=== PATIENT | female | born 1960 | race Caucasian/White ===

== ENCOUNTER 2024-08-17 12:31 | Emergency (ER) | payer MEDICARE, OTHER, SELFPAY ==
[2024-08-17 12:33] VITALS: BP 165/108
[2024-08-17 13:30] VITALS: BP 172/97
[2024-08-17] MEDS: TRANEXAMIC ACID 1000 MG INH (14:58)
--- NOTE | 2024-08-17 15:48 | ED.GENMED ---
History of Present Illness
General
Chief Complaint: Nose Bleed
Time Seen by Provider: 08/17/24 13:56
History of Present Illness
History of Present Illness:
64-year-old female presents to the emergency department for evaluation of persistent nosebleed. Had a small degree of nosebleeding yesterday however worsened again today. No reported trauma. Not on anticoagulants, does have a deviated septum
Review of Systems
Review of Systems
Allergies reviewed?: Yes
All Other Systems: ROS reviewed and negative except as documented in HPI and ROS
Phy Exam
Physical Exam
Physical Exam:
GEN: Well appearing, NAD, WDWN
HEENT: Oral mucosa moist, no scleral icterus. Copious epistaxis bilaterally, no evidence of active oropharyngeal hemorrhaging
Cardiac: Regular rate
Lung: No respiratory distress, no tachypnea
MSK: No gross deformity or injuries
Skin: Good color, no pallor or jaundice, no rashes
Neuro: AO x3, moves all extremities freely
Psych: Calm, cooperative
Course
Orders/Labs/Results
Orders:
Orders
08/17/24 14:19
Tranexamic Acid 1,000 mg INH NOW STA
Vital Signs
Initial and Last Documented VS:
Initial Vital Signs
Pulse Resp BP Pulse Ox
85 18 165/108 100
08/17/24 12:33 08/17/24 12:33 08/17/24 12:33 08/17/24 12:33
Last Documented Vital Signs
Pulse Resp BP Pulse Ox
85 18 172/97 100
08/17/24 12:33 08/17/24 12:33 08/17/24 13:30 08/17/24 12:33
Procedures
Nosebleed
Drug treatment: Epinephrine and Tranexamic Acid
Treatment: Merocel packing
Post treatment bleeding: none- good control
MDM/Problems Addressed
MDM/Problems Addressed:
Patient was initially packed bilaterally however left pack was removed and hemostasis remained. Hesitant to remove the right sided packing and potentially traumatize the nare further. Patient will be able to follow-up with ENT within the next 24
to 48 hours
*Critical Care Note
Total Time (30-74mins, 75-104mins- exclusive of procedures): Not Applicable
ED Attending Note
-
Portions of this chart may have been created with voice recognition software.� Occasional wrong word or��sound alike� substitutions may have occurred due to the inherent limitations of voice recognition software.
Discharge Plan
Departure
Patient Disposition: Home (Routine Discharge)
Date of Disposition: 08/17/24
Time of Disposition: 15:49
Patient with high blood pressure during this ER visit?: No
Discharge Problem:
Right-sided epistaxis
Instructions: Nosebleeds (DC)
Referrals:
Martha Jain DO [Family Provider] -
Zaria Betancur MD [Active] - Call in 1-3 days for appt
Activity Restrictions/Additional Instructions:
Call the ENT office tomorrow for an appointment, typically Will recommend approximately 24 to 48 hours before packing removal. If bleeding returns or if you have severe pain return to the emergency department
Interventions
Interventions:
*Risk Screen - Suicide Last Done: 08/17/24 12:33
*General Assessment Last Done: 08/17/24 12:33
*Neglect/Abuse Screening Last Done: 08/17/24 12:33
ED-EENT Assessment Last Done: 08/17/24 13:09
Discharge Date and Time
Print Language: ALB[place]
== END 2024-08-17 16:22 | disposition home or self-care (01) ==
LOC: EMR 12:31
PROVIDERS: EMERGENCY PHYSICIAN Emergency Medicine; FAMILY PHYSICIAN Family Medicine
DX: R04.0 Epistaxis (principal)
CPT/HCPCS: 30901; 94640; 99283